=== PATIENT | male | born 1995 | race Caucasian/White ===

== ENCOUNTER 2021-02-03 18:56 | Emergency (ER) | payer SELFPAY ==
[2021-02-03 19:37] LABS: BASOPHIL 0.5 % (0-2); EOSINOPHIL 1.2 % (0-5); HGB 14.7 g/dl (13.2-18.0); LYMPHOCYTE 21.3 % (15-48); MCH 29.8 pg (25.0-31.0); MCHC 34.2 g/dL (32.0-36.0); MCV 87.2 fL (78.0-100.0); MONOCYTE 11.3 % (0-12); MPV 8.8 fL (6.0-9.5); NEUTROPHIL 65.3 % (41-80); NRBC 0; PLT 270 K/uL (150-400); RBC 4.93 M/uL (4.70-6.00); RDW 12.5 % (11.5-14.0); WBC 9.3 K/uL (4.0-10.5)
[2021-02-03 19:51] LABS: IRON % SATURATION 16.5 %SAT (20-50)
[2021-02-03 19:53] LABS: BILIRUBIN - TOTAL 0.3 mg/dL (0.2-1.0); BUN/CREAT RATIO (CALC) 11.8 RATIO; CREATININE 0.85 mg/dL (0.67-1.17); GLOBULIN (CALCULATION) 3.9 g/dL; POTASSIUM 4.2 mmol/L (3.5-5.1); TOTAL PROTEIN 7.9 g/dL (6.4-8.2)
[2021-02-03 19:59] LABS: INR 0.97 (0.9-1.2); PROTHROMBIN TIME 12.3 SECONDS (11.8-13.4)
[2021-02-03] MEDS ORDERED: COLACE100 M1 PO (20:43)
[2021-02-03] MEDS ORDERED: FLAGYL500 MG PO (20:43)
[2021-02-03] MEDS ORDERED: BENTYL10 MG PO (20:43)
== END 2021-02-03 21:22 | disposition home or self-care (01) ==
LOC: FER 18:56
PROVIDERS: Emergency Medicine
DX: R10.84 Generalized abdominal pain (principal); K92.1 Melena; E61.1 Iron deficiency
CPT/HCPCS: 36415; 80053; 83540; 83550; 83690; 83735; 84145; 85025; 85610; J1170; J2405; J7030; Q9967